=== PATIENT | female | born 1975 | race Caucasian/White ===

== ENCOUNTER 2016-10-22 21:34 | Inpatient (IN) | payer OTHER ==
--- NOTE | ~2016-10-22 | DS ---
Unit #: [id number] #: [id number] [facility]: [facility] [id number] [facility] [address] [place] [address] [id number] MR#: [id number] NAME: JUSTIN LUCIANO ROOM: P176 Age: 41 Sex: F Admission Date: 10/22/2016 : 1975 Discharge Date: 10/28/2016 Attending Physician: Tina Crawford M.D. Primary Care Physician: Hernan Ochoa M.D. DISCHARGE SUMMARY IDENTIFYING DATA Ms. Luciano is a 41-year-old single white female, who is a resident of [place], [place] and is known to us from previous encounter, was self-referred to the hospital. DISCHARGE DIAGNOSES Psychiatric: Bipolar disorder, most recent episode depressed, recurrent, moderate, without psychotic features. Cocaine dependence, moderate. Cannabis dependence, moderate. Medical: Hypertension, restless legs syndrome. Stressors: Moderate psychosocial stressors. HISTORY OF PRESENT ILLNESS Please see initial psychiatric evaluation for details. PAST PSYCHIATRIC HISTORY Please see initial psychiatric evaluation for details. PAST MEDICAL HISTORY Please see initial psychiatric evaluation for details. HOSPITAL COURSE The patient was admitted to the adult psychiatric and chemical dependency unit at [facility] tatum Pérez and was oriented to the hospital environment. Routine p.r.n. medications were initiated and she was started back on her home medications, and Geodon was gradually titrated to 80 mg a day and she was closely monitored. She was taking the medications regularly and was tolerating them fairly well and was able to show a decent and therapeutic response to the medications and was willing to continue treatment on an outpatient basis and as such, it was decided that she will be discharged home and will continue treatment on an outpatient basis. DISCHARGE MEDICATIONS Wellbutrin XL 150 mg in the morning for depression; Neurontin 600 mg p.r.n. q.6 hours for anxiety; Vistaril 50 mg t.i.d. for anxiety; Geodon 80 mg in the evening with food for bipolar; Lamictal 25 mg at bedtime for bipolar and Requip 0.25 mg at bedtime for restless legs syndrome. DISCHARGE CONDITION Stable. Unit #: [id number] #: [id number] Patient: JUSTIN LUCIANO PROGNOSIS Fair. Dictated by... Jimy Finley/jessica TD: 10/28/2016 06:58 JOB #: [id number] DISCHARGE SUMMARY Page 1 of 1 X Tina Crawford MD DISCHARGE SUMMARY
--- NOTE | ~2016-10-22 | PN ---
Unit #: [id number] #: [id number] Patient: JUSTIN LUCIANO [id number] [facility] [address] [place] [address] [id number] MR#: [id number] NAME: JUSTIN LUCIANO ROOM: P176 Age: 41 Sex: F Admission Date: 10/22/2016 : 1975 Attending Physician: Tina Crawford M.D. Admitting Physician: Tina Crawford M.D. Primary Care Physician: Jimy [place] PROGRESS NOTES DATE 10/25/2016 DISCUSSION Ms. Luciano is a 41-year-old white female with mood disorder who was seen today and chart was reviewed and case was discussed with the staff. She has been anxious, withdrawn and seclusive to herself and reports persistent depression, anxiety and irritability and poor sleep at night. Meanwhile, she has been taking medications and tolerating them fairly well with no reported side effects. MENTAL STATUS EXAMINATION Middle-aged white female who was casually dressed with fair personal hygiene and appears to be in no acute distress or discomfort. She was awake and alert on interaction with intact orientation. Her mood was anxious and depressed with congruent affect. She denies any suicidal or homicidal ideation. Her insight and judgement remains slightly impaired. TREATMENT PLAN 1. Will continue on current medications and treatment protocol and will monitor her response to the medications and make further adjustments as needed. 2. Will continue to follow up. Dictated by... Jimy Finley/sangeetha TD: 10/25/2016 18:49 JOB #: [id number] Unit #: [id number] #: [id number] Patient: JUSTIN LUCIANO PROGRESS NOTES Page 1 of 1 X Tina Crawford MD PROGRESS NOTE
--- NOTE | ~2016-10-22 | PN ---
Unit #: [id number] #: [id number] Patient: JUSTIN LUCIANO [id number] [facility] [address] [place] [address] [id number] MR#: [id number] NAME: JUSTIN LUCIANO ROOM: 74 Age: 41 Sex: F Admission Date: 10/22/2016 : 1975 Attending Physician: Tina Crawford M.D. Admitting Physician: Tina Crawford M.D. Primary Care Physician: Jimy [place] PROGRESS NOTES DATE 10/24/2016 DISCUSSION Ms. Luciano is a 41-year-old white female with mood disorder who was seen today and chart was reviewed and case was discussed with the staff. She has been anxious laying in her bed, reports rehabilitating and significant anxiety and also reports persistent depressive symptoms with feelings of hopelessness. Meanwhile, she has not shown any agitation or aggression and has been cooperative with treatment recommendations and has been taking medications and tolerating them fairly well with no reported side effects. MENTAL STATUS EXAMINATION Middle-aged white female who was casually dressed with fair personal hygiene and appears to be in no acute distress or discomfort. She was awake and alert on interaction with intact orientation. Her mood was anxious with congruent affect. She denies any suicidal or homicidal ideations. Her insight and judgement remains slightly impaired. TREATMENT PLAN 1. Will add Vistaril 50 mg t.i.d. into her medication regimen for anxiety. 2. Will continue to follow up. Dictated by... Jimy Finley/sangeetha TD: 10/24/2016 15:50 JOB #: [id number] Unit #: [id number] #: [id number] Patient: JUSTIN LUCIANO PROGRESS NOTES Page 1 of 1 X Tina Crawford MD X PROGRESS NOTE
--- NOTE | ~2016-10-22 | PN ---
Unit #: [id number] #: [id number] Patient: JUSTIN LUCIANO [id number] [facility] [address] [place] [address] [id number] MR#: [id number] NAME: JUSTIN LUCIANO ROOM: P176 Age: 41 Sex: F Admission Date: 10/22/2016 : 1975 Attending Physician: Tina Crawford M.D. Admitting Physician: Tina Crawford M.D. Primary Care Physician: Jimy [place] PROGRESS NOTES DATE 10/26/2016 DISCUSSION Ms. Luciano is a 41-year-old white female who was seen today and chart was reviewed and case was discussed with the staff. She has been anxious, withdrawn and rather seclusive to herself. Meanwhile, she has been cooperative with treatment recommendations as she has been taking the medications and tolerating them fairly well. MENTAL STATUS EXAMINATION Middle-aged white female who was casually dressed with fair personal hygiene, appears to be in no acute distress or discomfort. She was awake and alert with intact orientation. Her mood was anxious with congruent affect. She denies any suicidal or homicidal ideations. Her insight and judgement remains slightly impaired. TREATMENT PLAN 1. We will continue her on her current medications and treatment protocol. We will monitor her response and make further adjustments as needed. 2. We will continue to follow up. Dictated by... Jimy Finley/jacy TD: 10/27/2016 23:42 JOB #: [id number] Unit #: [id number] #: [id number] Patient: JUSTIN LUCIANO PROGRESS NOTES Page 1 of 1 X Tina Crawford MD X PROGRESS NOTE
--- NOTE | ~2016-10-22 | PN ---
Unit #: [id number] #: [id number] Patient: JUSTIN LUCIANO [id number] [facility] [address] [place] [address] [id number] MR#: [id number] NAME: JUSTIN LUCIANO ROOM: P176 Age: 41 Sex: F Admission Date: 10/22/2016 : 1975 Attending Physician: Tina Crawford M.D. Admitting Physician: Tina Crawford M.D. Primary Care Physician: Jimy [place] PROGRESS NOTES DATE 10/27/2016 DISCUSSION Ms. Luciano is a 41-year-old white female with substance abuse and mood disorder who was seen today and chart was reviewed and case was discussed with the staff. She has been anxious, withdrawn and rather seclusive to herself. Meanwhile, she has been cooperative with treatment recommendations as she has been taking the medications and tolerating them fairly well with no reported side effects. MENTAL STATUS EXAMINATION Middle-aged white female who was casually dressed with fair personal hygiene, appears to be in no acute distress or discomfort. She was awake and alert on interaction with intact orientation. Her mood was anxious with congruent affect. She denies any suicidal or homicidal ideations. Her insight and judgement remains slightly impaired. TREATMENT PLAN 1. We will continue her on her current medications and treatment protocol. We will monitor her response to the medication and make further adjustments as needed. 2. We will continue to follow up. Dictated by... Jimy Finley/jacy TD: 10/28/2016 21:12 JOB #: [id number] Unit #: [id number] #: [id number] Patient: JUSTIN LUCIANO PROGRESS NOTES Page 1 of 1 X Tina Crawford MD PROGRESS NOTE
--- NOTE | ~2016-10-22 | HP ---
Unit #: [id number] #: [id number] Patient: JUSTIN LUCIANO [id number] [place] [address] [id number] MR#: [id number] NAME: JUSTIN LUCIANO ROOM: P174 Age: 41 Sex: F Admission Date: 10/22/2016 : 1975 Attending Physician: Tina Crawford M.D. Admitting Physician: Tina Crawford M.D. Primary Care Physician: Hernan Ochoa M.D. HISTORY AND PHYSICAL HISTORY OF PRESENT ILLNESS Justin is a 41 year old admitted to [facility] because of her polysubstance abuse which includes alcohol and crack cocaine. PAST MEDICAL HISTORY 1. Long history of polysubstance abuse. 2. High blood pressure. PAST SURGICAL HISTORY Nothing reported. ALLERGIES No known drug allergies. SOCIAL HISTORY Smokes less than 1 pack per day. Drinks a pint of liquor on a daily basis. Admits to using crack cocaine regularly. FAMILY HISTORY Medically noncontributory. REVIEW OF SYSTEMS CONSTITUTIONAL: No fever or chills. HEENT: Denies any sore throat, ear pain or runny nose. CARDIOVASCULAR: Denies chest pain, irregular heart rhythm or palpitations. CHEST: Denies shortness of breath or cough. No hemoptysis. GASTROINTESTINAL: Denies nausea, vomiting, diarrhea or chronic constipation. ENDOCRINE: Denies history of increased thirst or urination. No recent significant weight loss or gain. GENITOURINARY: Denies dysuria, frequency, or hematuria. SKIN: Denies any rashes. HEMATOLOGIC: Denies history of increased bleeding or bruising. MUSCULOSKELETAL: Denies any hot, swollen joints. No generalized muscle pain. NEUROLOGIC: Denies problems with vision or speech. No frequent, severe headaches. No numbness, tingling or weakness in any extremities. Denies loss of bladder or bowel control. CURRENT MEDICATIONS 1. Detox protocol. 2. Geodon 80 mg q.h.s. 3. Lamictal 25 mg q.h.s. Unit #: [id number] #: [id number] Patient: JUSTIN LUCIANO 4. Desyrel 100 mg q.h.s. p.r.n. 5. Milk of Magnesia p.r.n. 6. Maalox p.r.n. 7. Tylenol p.r.n. 8. Inderal 20 mg t.i.d. p.r.n. 9. Requip 0.25 mg q.h.s. PHYSICAL EXAMINATION GENERAL: Alert, well-nourished, in no apparent distress. VITAL SIGNS: Blood pressure 100/68, heart rate 80, respirations 16, temperature 98.6. WEIGHT: 160. HEIGHT: 5 feet 4 inches. SKIN: Warm and dry without rash or lesion. HEENT: Normocephalic. TMs not viewed. Oral and nasal passages clear. Conjunctivae clear. PERRLA. EOMs intact. NECK: Supple without lymphadenopathy or thyromegaly. HEART: Regular rate and rhythm without murmur. LUNGS: Clear. ABDOMEN: Soft, nontender. : Not done. EXTREMITIES: No evidence of cyanosis, clubbing or edema. Moves all without focal deficit. NEUROLOGICAL: Grossly within normal limits. Cranial Nerves: II: Visual suero are intact. III, IV AND : Extraocular movements are intact. Pupils are equal, round and reactive to light. V: Facial sensation is grossly normal. VII: Facial movements and expression are normal. VIII: Auditory acuity grossly intact. IX, X: Uvula is midline. Phonation is normal. XI: Patient shrugs shoulders and turns head normally. XII: Tongue protrudes in the midline. Sensory and Motor Function: Sensory and motor sensation is grossly normal. Motor: moves all extremities well. Coordination: Gait is normal. Deep Tendon Reflexes: Intact. IMPRESSION Psychiatric admission. RECOMMENDATIONS PSYCHIATRIC: Per psychiatrist. MEDICAL: See no contraindications to participate in facility's activities. MEDICAL PROGNOSIS Good. MEDICAL CONDITION Stable. Dictated by... Brittni Pérez P.A.-C. for Jimy Garcia/sangeetha Unit #: [id number] #: [id number] Patient: JUSTIN LUCIANO TD: 10/23/2016 18:53 JOB #: [id number] HISTORY AND PHYSICAL Page 1 of 1 X Brittni Pérez X HISTORY AND PHYSICAL
--- NOTE | ~2016-10-22 | PA ---
Unit #: [id number] #: [id number] Patient: JUSTIN LUCIANO [id number] [facility] [address] [place] [address] [id number] MR#: [id number] NAME: JUSTIN LUCIANO ROOM: P174 Age: 41 Sex: F Admission Date: 10/22/2016 : 1975 Date of Assessment: Attending Physician: Tina Crawford M.D. Admitting Physician: Tina Crawford M.D. Primary Care Physician: Hernan Ochoa M.D. PSYCHIATRIC ASSESSMENT DATE OF SERVICE 10/23/2016. IDENTIFYING DATA Ms. Marino is a 41-year-old single, , white female, who is a resident of [place], [place] and is known to us from previous encounter, was brought to the hospital accompanied by her stepmother on a voluntary basis. CHIEF COMPLAINT "Just been really suicidal." HISTORY OF PRESENT ILLNESS Ms. Marino is a 41-year-old white female with history of substance abuse and mood disorder, who was self-referred to the hospital reporting increasing depression and suicidal ideation, stating "I keep thinking of things I can do to make myself not wake up. I have slept 24 hours yesterday and 20 some the day before. I cannot focus. My anxiety is out of the roof. I cannot take care of my children. I have been going to [facility] and they changed my medication. I don't take my antidepressant anymore, it was making me sick; and Geodon and Neurontin gave me a buzz and I am cocaine dependent. I have to have it every other day or I throw up and shit, and it has been like that for 10 years. I did not have kids before and I cannot handle much and I don't want to wake up slicing my wrist or taking a bunch of medications. I have a lot of pressure on me. I have a job, three kids at home. I cannot handle it. These mood swings and anxiety are worsening." She does report increasing depression, anxiety, irritability, restlessness, feelings of hopelessness and helplessness, and suicidal ideations, and as such, recommendation for inpatient level of care was made. SUBSTANCE ABUSE HISTORY The patient reports extensive history of substance abuse and dependence including alcohol, cannabis, cocaine, acid, amphetamines and Ecstasy in the past, and currently she reports cocaine to be her drug of choice along with cannabis, which she reports that she has been using it every other day. PAST PSYCHIATRIC HISTORY The patient has had a history of inpatient psychiatric hospitalization at [facility], at [place], at [facility], at [facility] as well as outpatient treatment through [facility] and has been diagnosed and treated for bipolar disorder and substance abuse and dependence, and review of the Unit #: [id number] #: [id number] Patient: JUSTIN LUCIANO medical records indicate that currently she is on a combination of Neurontin and Geodon, but reports not doing good on medication. PAST MEDICAL HISTORY The patient's medical history is significant for hypertension, restless legs syndrome. ALLERGIES No known medication allergies. PERSONAL AND SOCIAL HISTORY A 41-year-old white female, who reports that she lives at home with her boyfriend and three daughters, ages 9, 4 and 4; and is employed and has fairly decent social support system. MENTAL STATUS EXAMINATION Young white female, who was casually dressed with fair personal hygiene, appears to be in no acute distress or discomfort. She was awake and alert on interaction with intact orientation to time, place, and person. Her mood was anxious and depressed with a congruent affect. Her speech was slow and restricted in content. Her thought processes were disorganized with some looseness of associations and suicidal ideations. Her insight and judgment remain significantly impaired. DIAGNOSTIC IMPRESSION Psychiatric: Bipolar disorder, most recent episode depressed, recurrent, moderate, without psychotic features; cocaine dependence, moderate; cannabis dependence, moderate. Medical: Hypertension, restless legs syndrome. Stressors: Moderate psychosocial stressors. TREATMENT PLAN 1. The patient has presented with history of mood disorder and substance abuse and has been decompensating and will need inpatient hospitalization for safety and stabilization. We will start her back on her home medications and adjust the medications and monitor response. 2. Supportive therapy was provided to the patient. 3. Safe, structured, and nourishing environment will be provided. ESTIMATED LENGTH OF STAY 5 to 7 days. ABILITY TO HELP SELF Limited. WILLINGNESS TO HELP SELF The patient appears to be willing to help self. STRENGTHS 1. Communicative. 2. Cooperative. PROBLEMS 1. Chronic dysphoric symptoms. 2. Poor social support system. DISCHARGE CRITERIA This will be contingent upon the patient's ability to show resolution of her depression and anxiety, and her ability to stay safe and sober, Unit #: [id number] #: [id number] Patient: JUSTIN LUCIANO particularly after discharge from the hospital. Dictated by... Tina Crawford M.D. MIREILLE/jessica TD: 10/23/2016 06:59 JOB #: [id number] PSYCHIATRIC ASSESSMENT Page 1 of 1 X Tina Crawford MD X PSYCHIATRIC ASSESSMENT
[2016-10-23 09:40] LABS: BASOPHIL# 0.1 X10e3 (0-0.3); BASOPHIL% 0.8 % (0-2.5); EOSINOPHIL# 0.2 X10e3 (0-0.7); EOSINOPHIL% 2.7 % (0.0-7.0); HEMATOCRIT 41.8 % (35.0-45.0); HEMOGLOBIN 13.8 gm/dL (12.0-16.0); LYMPHOCYTE# 3.2 X10e3 (1.0-3.5); LYMPHOCYTE% 39.9 % (17.0-45.0); MEAN CELL VOLUME 91.5 FL (83-96); MEAN CORPUSCULAR HEMOGLOBIN 30.2 PG (28-34); MEAN PLATELET VOLUME 7.6 FL (6.5-11.5); MONOCYTE# 0.5 X10e3 (0-1.0); MONOCYTE% 6.6 % (3.0-12.0); PLATELET COUNT 332 X10e3 (140-420); RED BLOOD COUNT 4.57 X10e (3.90-5.30); RED CELL DISTRIBUTION WIDTH 14.5 % (11.0-15.5); WHITE BLOOD COUNT 8.1 X10e3 (4.0-10.5)
[2016-10-23 09:42] LABS: DIFF IND NO
[2016-10-23 10:03] LABS: THYROID STIMULATING HORMONE 0.44 uIU/ml (0.34-5.60)
[2016-10-23 10:12] LABS: FREE THYROXIN (T4) 0.83 ng/dL (0.58-1.64)
[2016-10-23 10:37] LABS: ALBUMIN SERUM 3.7 g/dL (3.5-5.0); BILIRUBIN,TOTAL 0.5 mg/dL (0.2-2.0); BUN/CREATININE RATIO 17.77; CALCIUM SERUM 9.1 mg/dL (8.4-10.2); CREATININE SERUM 0.9 mg/dL (0.6-1.4); POTASSIUM 4.2 mmol/L (3.5-5.1); PROTEIN TOTAL SERUM 5.9 g/dL (6.0-8.3)
[2016-10-25 09:39] LABS: URINE BILIRUBIN NEG (NEG); URINE BLOOD NEG (NEG); URINE COLOR DK YELLOW; URINE GLUCOSE NEG (NEG); URINE KETONE NEG (NEG); URINE LEUKOCYTE ESTERASE NEG (NEG); URINE NITRATE NEG (NEG); URINE PH 6.5 (5-8); URINE PROTEIN NEG (NEG); URINE SPECIFIC GRAVITY 1.021 (1.003-1.035); URINE UROBILINOGEN 0.2 MG/DL (NEG)
[2016-10-25 10:41] LABS: AMPHETAMINE NEG (NEG); BARBITURATES NEG (NEG); BENZODIAZEPINES POS (NEG); COCAINE NEG (NEG); MARIJUANA POS (NEG); OPIATES NEG (NEG); TRICYCLIC ANTIDEPRESSANTS NEG (NEG); U METHADONE NEG (NEG)
== END 2016-10-28 09:50 | disposition home or self-care (01) | DRG 885 ==
LOC: P1E 21:34
PROVIDERS: Psychiatry & Neurology Psychiatry
DX: F31.9 Bipolar disorder, unspecified (principal); F14.20 Cocaine dependence, uncomplicated; I10 Essential (primary) hypertension; F12.20 Cannabis dependence, uncomplicated; T40.5X5A Adverse effect of cocaine, initial encounter; T40.7X5A Adverse effect of cannabis (derivatives), initial encounter; G25.81 Restless legs syndrome; F17.210 Nicotine dependence, cigarettes, uncomplicated
CPT/HCPCS: 80053; 80307; 81003; 84439; 84443; 84703; 85025; 86592